=== PATIENT | male | born 1960 | race Caucasian/White ===

== ENCOUNTER → 2017-03-27 | Outpatient (CLI) | payer BC, MEDICAID ==
[~2017-03-27] MED LIST: HEPARIN 1,000 UNITS/ML 10ML VIAL (FOR RADIOLOGY& DIALYSIS ONLY) As Ordered ONE; ISOVUE-300 61% 50ML VIAL (Q9967) As Ordered ONE; MIDAZOLAM INJ 2 MG/2 ML VIAL (J2250) As Ordered ONE; PROTAMINE SULF INJ 50 MG/5 ML VIAL (J2720) As Ordered ONE; fentaNYL 100 MCG/2 ML INJECTION (J3010) As Ordered ONE
--- NOTE | 2017-03-27 21:50 | RO ---
DATE OF PROCEDURE: 03/26/2017 PREPROCEDURE DIAGNOSIS: Aortoiliac occlusive disease, femoral popliteal arterial occlusive disease, status post left 2nd, 3rd and 4th toe amputations, left foot pain. POSTPROCEDURE DIAGNOSIS: Aortoiliac occlusive disease, femoral popliteal arterial occlusive disease, status post left 2nd, 3rd and 4th toe amputations, left foot pain. PROCEDURE: Aortogram, iliofemoral angiogram, selective left common femoral artery catheter placement with left lower extremity angiogram, left common and external iliac artery angioplasty and stenting with a 10 x 49 Wallstent post-dilated with an 8 x 4 balloon, right common iliac artery angioplasty with an 8 x 4 balloon, right external iliac artery angioplasty with an 8 x 4 balloon, right common femoral arteriotomy closure with a Mynx Closure Device. SURGEON: Dr. Cullen Cha OPERATIONS EXECUTIVE: IBIS Burgess and IBIS Shankar ANESTHESIA: Local with sedation with 50 mcg of Fentanyl and 10 mL of 2% lidocaine. Sedation time was from 8:29 a.m. to 8:50 a.m. with the sedation and cardiopulmonary monitoring performed by the R.NIsaiah in the room under my direct supervision. I was present for and directed the entire case. Fluoro time 4.7 minutes. Contrast 27 mL of Isovue-300, heparin 7000 units, protamine 50 mg. COMPLICATIONS: None. DRAINS: None. SPECIMENS: None. IMPLANTS: Right common femoral arteriotomy closure with a 6-Grenadian Mynx Closure Device. INDICATION: The patient is a 57-year-old male with previous ischemia of the left foot with amputation of the toes and nonhealing of the wound, requiring evaluation at the wound care center. The patient has also previously undergone a left femoral to peroneal artery bypass graft with saphenous vein graft. The patient has also previously undergone multiple placement of stents in the left superficial femoral and popliteal regions. The patient now follows up with continued pain in his left calf and foot, and nonpalpable pulses in the left foot. The patient was evaluated and will undergo a left lower extremity angiogram with possible angioplasty and/or stent. Risks, benefits and alternative treatment options were discussed with the patient. Alternative treatment options included but were not limited to no intervention. Risks included but were not limited to infection, bleeding, renal failure requiring hemodialysis, retroperitoneal hematoma, possible need for open surgical intervention, cerebrovascular accident , myocardial infarction, pulmonary embolus, deep vein thrombosis (DVT), loss of limb, loss of life and poor outcome. The patient understands, accepts these risks and consents to proceed. DESCRIPTION OF PROCEDURE: The patient was taken to the angiography suite, placed supine on the angiography room table and then prepped and draped in a standard surgical fashion. A time-out was performed confirming the patient and the procedure after which the right common femoral artery was cannulated with a micropuncture needle after anesthetizing the overlying skin with 1% lidocaine. The micropuncture wire was advanced through the micropuncture needle, which was upsized to a micropuncture sheath. A Bentson wire was advanced through the micropuncture sheath, which was upsized to a 5-Grenadian sheath. 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 Eventually the wire was passed through into the aorta. An Omni Flush Catheter was placed in the aorta above the renal arteries and an angiogram was performed. Catheter was pulled down the level of the bifurcation of the iliac arteries and an iliofemoral angiogram was performed. Catheter was directed over the bifurcation of the iliac arteries, placed in the left common femoral artery and a left lower extremity angiogram was performed. The iliofemoral angiogram showed stenosis at the distal aspect of the previously placed left common iliac stent, extending into the external iliac artery, which was approximately 60%. The left common and external iliac artery were then angioplastied and stented with a 10 x 49 Wallstent which was post-dilated with an 8 x 4 balloon. The irregularities in the right common iliac stent and the junction of the right common iliac and external iliac artery were angioplastied with an 8 x 4 balloon in the right common iliac artery and the right external iliac artery after which a completion iliofemoral angiogram was performed, showing resolution of the stenoses with excellent flow through both common iliacs into the external and internal iliac arteries bilaterally. Catheters and wires were removed. The 6-Grenadian sheath was removed and the arteriotomy in the right common femoral artery was closed using a Mynx Closure Device with an additional 10 minutes of adjunctive pressure applied for hemostasis. Dressings were then applied. The patient tolerated the procedure well. All instrument, sponge and needle counts were correct at the end of the case. There were no complications. Dr. Cha was present for and directed the entire case. The patient was transferred to the holding area in stable condition. RADIOLOGIC SUPERVISION INTERPRETATION: The initial aortogram showed the suprarenal aorta to be patent. The superior mesenteric and celiac arteries were patent as well as the renal arteries bilaterally. There was calcific plaquing of the infrarenal aorta with no obvious stenosis or occlusion noted. There was good filling of the lumbar vessels in the infrarenal aorta. The iliofemoral angiogram showed the infrarenal aorta again to have some calcific plaquing but no obvious stenoses. The inferior mesenteric artery was patent and small in caliber. There was some luminal irregularity within the right common iliac artery with an approximate 50-60% stenosis. There was also stenosis at the junction of the right common and external iliac artery at the previously placed stent, which was approximately 50-60%. The remainder of the external iliac artery, the right common femoral artery and the proximal right superficial femoral and profunda femoris arteries were patent. There was no visualization of the right lower extremity below the puncture site. The left common iliac artery showed luminal irregularity within the previously placed stent, which was approximately 30-40% stenosis, at the junction of the common and external iliac artery there was an approximate 60% stenosis extending into the external iliac artery, the distal external iliac artery and common femoral artery were widely patent. A catheter was then placed selectively in the left common femoral artery and a left lower extremity angiogram was performed. This showed the left common femoral artery to be patent, as well as a large number of collaterals crossing into the thigh region. The profunda femoris artery was patent. There was a bypass graft originating off of the common femoral artery just above the bifurcation of the superficial femoral and profunda femoris artery with no anastomotic stenosis noted. There was complete occlusion of the superficial femoral artery, which had stents within it from the entire length of the superficial femoral artery extending into the popliteal artery. The bypass graft was patent along its course down to its anastomosis to the peroneal artery with no stenosis or occlusions noted. The distal bypass graft was patent, and the anastomosis to the peroneal artery was widely patent with no stenosis noted. There was retrograde filling of the tibioperoneal trunk for a short distance. The peroneal artery was patent into the ankle with no significant disease noted along the course of the peroneal artery. The peroneal artery terminated at the ankle with collaterals feeding into the posterior tibial which was small, tortuous and patent for a short distance. There was no visualization of the anterior tibial or dorsalis pedis arteries. There was only collateral flow from the mid foot into the forefoot noted with no plantar arch visualized. The left common and external iliac artery were then angioplastied and stented with a 10 x 49 Wallstent, which was then post-dilated with an 8 x 4 balloon. The right common iliac artery was angioplastied with an 8 x 4 balloon. The right external iliac artery was angioplastied with an 8 x 4 balloon. A completion iliofemoral angiogram showed resolution of the stenoses with good filling of the common iliac, external and internal iliac arteries bilaterally. A Mynx Closure Device was used to close the arteriotomy in the right common femoral artery. CONCLUSION: The patient has a widely patent bypass graft from the left common femoral artery to the left peroneal artery with peroneal artery run-off into the foot with severe distal small vessel disease and only collateral flow off of a reconstituted posterior tibial artery at the ankle into the mid and forefoot. The patient had stenosis in the common and external iliac arteries, which were treated bilaterally. [facility]
--- NOTE | 2017-04-12 13:05 | REP ---
MULTIPLE IMAGES DURING ABDOMINAL AORTOGRAM AND LEFT LOWER EXTREMITY ANGIOGRAM: Multiple images performed during abdominal aortogram and left lower extremity angiogram. Abdominal aorta is visualized as well as the arterial structures of the left lower extremity. 4.7 minutes fluoroscopy time utilized for the procedure. Signed by Marcos Pena MD 04/12/2017 03:57 P
== END ==
LOC: M IRPRO 06:18
PROVIDERS: ATTEND Surgery Vascular Surgery
DX: I74.3 Embolism and thrombosis of arteries of the lower extremities (principal); I74.09 Other arterial embolism and thrombosis of abdominal aorta; T82.856A Stenosis of peripheral vascular stent, initial encounter; M79.672 Pain in left foot; Z89.422 Acquired absence of other left toe(s)
CPT/HCPCS: 37220; 37221; 37222; 37223; 75625; 75716; 99152; C1725; C1760; C1769; C1876; C1887; C1894; J2720; J3010; Q9967